=== PATIENT | male | born 1990 | race African-American/Black ===

== ENCOUNTER 2020-02-05 17:04 | Inpatient (IN) | payer SELFPAY ==
[2020-02-05 17:09] VITALS: BP 157/104; PULSE 93; RESP 18; TEMP 36.5; O2SAT 98; BMI 27.3
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
[2020-02-05 19:37] LABS: Basophils # 0.1 10^3/uL (0.0-0.1); Basophils % 0.8 %; Hematocrit 51.2 % (42.0-52.0); Hemoglobin 16.1 g/dL (11.7-16.6); Lymphocytes # 1.9 10^3/uL (0.8-4.8); Lymphocytes % 21.4 %; Mean Corpuscular HGB Conc 31.4 g/dL (30.0-36.0); Mean Corpuscular Hemoglobin 28.1 pg (28.0-34.0); Mean Corpuscular Volume 89.5 fL (80-94); Mean Platelet Volume 10.7 fL (7.4-10.4); Monocytes # 0.3 10^3/uL (0.2-0.9); Monocytes % 3.3 %; Neutrophils # 6.35 10^3/uL (1.8-7.7); Neutrophils % 73.3 %; Nucleated Red Blood Cells % 0 %; Platelet Count 270 10^3/cmm (130-400); Red Blood Count 5.72 10^6/uL (4.1-5.3); Red Cell Distribution Width 13.1 % (12.1-15.1); White Blood Count 8.7 10^3/uL (4.0-10.0)
[2020-02-05] MEDS: hyDROXYzine 25 mg Capsule 50 MG PO (19:58)
[2020-02-05] MEDS: trazodone 50 mg Tablet PO (19:58)
[2020-02-05 20:08] LABS: Alanine Aminotransferase 30 U/L (0-41); Albumin Level 4.5 g/dL (3.5-5.2); Alkaline Phosphatase 69 IU/L (40-130); Aspartate Amino Transferase 23 U/L (0-40); Blood Urea Nitrogen 10 mg/dL (6-20); Calcium 9.7 mg/dL (8.5-10.5); Carbon Dioxide 25 mmol/L (22-29); Chloride 104 mmol/L (98-107); Globulin 3.4 g/dL (1.3-4.6); Glomerular Filtration Rate 105.5 mL/min (90-130); Glucose 163 mg/dL (65-115); Osmolality Calculated 293 mOsm/kg (285-295); Sodium 140 mmol/L (136-145); Total Bilirubin 0.4 mg/dL (0.15-1.2); Total Protein 7.9 g/dL (6.6-8.7)
[2020-02-05 20:22] LABS: Acetaminophen < 5.0 ug/mL (10-30); Alcohol Level < 10 mg/dL (0-10); Anion Gap 15.4 (5-19); Potassium 4.4 mmol/L (3.5-5.1); Salicylate < 0.3 mg/dL (3-10)
[2020-02-05 22:00] VITALS: BP 147/91; PULSE 82; RESP 15; TEMP 36.8; O2SAT 97
[2020-02-06 06:00] VITALS: BP 143/83; PULSE 74; RESP 17; TEMP 36.3; O2SAT 97
[2020-02-06] MEDS: acetaminophen 325 mg Tablet 650 MG PO ×2 (08:00→15:11)
[2020-02-06 13:34] VITALS: BP 116/68; PULSE 87; RESP 18; TEMP 36.7; O2SAT 98
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
[2020-02-06 20:01] VITALS: BP 128/74; PULSE 85; RESP 16; TEMP 36.6; O2SAT 96
[2020-02-06] MEDS: hyDROXYzine 25 mg Capsule 50 MG PO (20:40)
[2020-02-06] MEDS: trazodone 50 mg Tablet PO (20:41)
--- NOTE | 2020-02-06 22:02 | PC.NURSE ---
ON ASSESSMENT, PT APPEARS TO BE WITHOUT ANY SIGNS/SYMPTOMS OF ANXIETY. HOWEVER, REPORTS FEELING A PAIN IN HIS CHEST. HE STATES THAT HE HAS NO HISTORY OF CARDIAC ISSUES BUT HAS A HX OF ANXIETY ATTACKS. HE ALSO REPORTS HIS BODY TWITCHING IN HIS SLEEP, THAT IT IS BOTHERSOME, NOT NEW, IT HAS BEEN AN ISSUE SINCE HE WAS A CHILD. DENIES SI/HI. DENIES AH/VH AT THIS TIME.
[2020-02-07 05:56] VITALS: BP 113/74; PULSE 78; RESP 18; TEMP 37; O2SAT 97
[2020-02-07] MEDS: fluoxetine 20 mg Capsule PO (11:33)
[2020-02-07 14:00] VITALS: BP 115/79; PULSE 93; RESP 18; TEMP 36.9; O2SAT 95
[2020-02-07] MEDS: haloperidol 1 mg Tablet 2 MG PO (17:20)
--- NOTE | 2020-02-07 18:54 | P.PN_ITS ---
Subjective NPU Subjective: Interval history: Juan presents today reporting that he is feeling okay. We discussed his plans moving forward and he is open to continuing the medication and reports that he has spoke with his and they have discussed the possibility of him coming home and engaging in treatment from there. He reports growing optimism about confronting things moving forward with the medication aborted with his benefits and alternatives of considering discharge tomorrow and he understood and agreed to proceed as documented in his note. Mental Status Exam MSE Comments: This is a well-nourished, well-developed, -[place] male. Cooperative with exam in mild distress. Speech is decreased rate and volume and somewhat mumbly. Thought process: organized. Thought content: patient denied any suicidal or homicidal ideation, there were no delusions reported or noted, patient denied any auditory or visual hallucinations. Attention, concentration, and memory appeared intact but were not formally tested. Alert and oriented times three. Insight and judgment are good. Vitals/I&O/Wt Last Vital Signs Temp 98.5 F 02/07/20 14:00 Pulse 93 02/07/20 14:00 Resp 18 02/07/20 14:00 BP 115/79 02/07/20 14:00 Pulse Ox 95 02/07/20 14:00 Data NPU : 02/05/20 19:21 02/05/20 19:21 A&P Additional A&P Information (1) Suicidal ideation: (2) Psychosis: (3) Depression: This is a 29 year old, -[place]aced[place] male, with adjustment disorder and reports of ongoing psychosis, depression, partner relational problem he reports he is been off of medication for some time and open to recent medication. 1. Continue current medication. We will start Haldol 2 mg p.o. twice daily and Prozac 20 p.o. every morning. 2. Continue every 15 minute checks for safety. 3. Encourage individual, group and milieu therapy. 4. Encourage sober living treatment at the highest level of care to which he is willing to commit. Involuntary Hold Information 96 Hour Hold: 96 Hour Involuntary Admission: Yes 96 Hour Hold Ending Date: 02/09/20 96 Hour Hold Ending Time: 18:52 Attestations NPU Medical Necessity Statement*: Inpatient hospitalization is medically necessary and the clinically appropriate intervention, at this time. We will monitor medications and make changes as indicated. Likely length of stay is 1 to 3 days. Coding Level of Care Code Acute Railroad Supervisor Of Engines for Steve Gamez
[2020-02-07 19:33] VITALS: BP 116/75; PULSE 79; RESP 16; TEMP 36.9; O2SAT 97
--- NOTE | 2020-02-07 20:20 | PC.NURSE ---
Pt states that he has rib pain rated a 5 on a 1-10 pain scale. Med nurse notified
[2020-02-07] MEDS: hyDROXYzine 25 mg Capsule 50 MG PO (20:33)
[2020-02-07] MEDS: acetaminophen 325 mg Tablet 650 MG PO (20:33)
[2020-02-08 06:00] VITALS: BP 115/75; PULSE 75; RESP 17; TEMP 37.1; O2SAT 97
[2020-02-08] MEDS: fluoxetine 20 mg Capsule PO (08:45)
[2020-02-08] MEDS: haloperidol 1 mg Tablet 2 MG PO (08:45)
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
[2020-02-08 13:47] VITALS: BP 115/75; PULSE 75; RESP 17; TEMP 37.1; O2SAT 97
[2020-02-08] MEDS: acetaminophen 325 mg Tablet 650 MG PO (14:04)
== END 2020-02-08 14:24 | disposition home or self-care (01) | DRG 885 ==
LOC: ER 18:03 → NP 18:07
PROVIDERS: Emergency Medicine; Admitting Provider Psychiatry & Neurology Psychiatry; Visit Provider Psychiatry & Neurology Psychiatry
DX: F23 Brief psychotic disorder (principal); R45.851 Suicidal ideations; F32.9 Major depressive disorder, single episode, unspecified; Z63.0 Problems in relationship with spouse or partner; F17.210 Nicotine dependence, cigarettes, uncomplicated; I10 Essential (primary) hypertension
CPT/HCPCS: 12345; 36415; 80053; 80307; 85025; 99284